=== PATIENT | male | born 1980 | race African-American/Black ===

== ENCOUNTER 2020-11-11 15:32 | Emergency (ER) | payer OTHER ==
[~2020-11-11] VITALS: Ht 162.6 cm; Wt 68.1 kg
[~2020-11-11 15:32] MED LIST: NAPR-683 PO; ZONI100C26 PO
--- NOTE | 2020-11-11 16:17 | PHYS DOC ---
Past Medical History Past Medical History: Seizure, Other Additional Past Medical Histor: AUTISTIC Past Surgical History: No Surgical History Smoking Status: Never Smoker Alcohol Use: None Drug Use: None General Adult EDM: Chief Complaint: ABDOMINAL PAIN HPI: HPI: Patient is a 40 year old male who presented to ER for evaluation of abdominal cramping. Denies any nausea vomiting, no fever. Patient said he is con stipated, do not remember where was the last time he had a bowel movement. Review of Systems: Review of Systems: Constitutional: Denies fever or chills. [] Eyes: Denies change in visual acuity. [] HENT: Denies nasal congestion or sore throat. [] Respiratory: Denies cough or shortness of breath. [] Cardiovascular: Denies chest pain or edema. [] GI: Positive for abdominal pain with constipation, no diarrhea, no nausea vomiting. : Denies dysuria. [] Musculoskeletal: Denies back pain or joint pain. [] Integument: Denies rash. [] Neurologic: Denies headache, focal weakness or sensory changes. [] Endocrine: Denies polyuria or polydipsia. [] Lymphatic: Denies swollen glands. [] Psychiatric: Denies depression or anxiety. [] Heart Score: C/O Chest Pain: N/A Risk Factors: Risk Factors: DM, Current or recent (<one month) smoker, HTN, HLP, family history of CAD, obesity. Risk Scores: Score 0 - 3: 2.5% MACE over next 6 weeks - Discharge Home Score 4 - 6: 20.3% MACE over next 6 weeks - Admit for Clinical Observation Score 7 - 10: 72.7% MACE over next 6 weeks - Early Invasive Strategies Allergies: Allergies: Allergies Coded Allergies Type Severity Reaction Last Updated Verified No Known Drug Allergies 05/08/13 No Physical Exam: PE: Constitutional: Well developed, well nourished, no acute distress, non-toxic appearance. [] HENT: Normocephalic, atraumatic, bilateral external ears normal, oropharynx moist, no oral exudates, nose normal. [] Eyes: PERRLA, EOMI, conjunctiva normal, no discharge. [] Neck: Normal range of motion, no tenderness, supple, no stridor. [] Cardiovascular:Heart rate regular rhythm, no murmur [] Lungs & Thorax: Bilateral breath sounds clear to auscultation [] Abdomen: Bowel sounds normal, soft, no tenderness, no masses, no pulsatile ma sses. [] Skin: Warm, dry, no erythema, no rash. [] Back: No tenderness, no CVA tenderness. [] Extremities: No tenderness, no cyanosis, no clubbing, ROM intact, no edema. [] Neurologic: Alert and oriented X 3, normal motor function, normal sensory function, no focal deficits noted. [] Psychologic: Affect normal, judgement normal, mood normal. [] EKG: EKG: [] Radiology/Procedures: Radiology/Procedures: [][facility] [address] [place], [place] [id number] IMAGING REPORT Signed PATIENT: GIANLUCA DOTSON ACCOUNT: [id number] : 1980 LOCATION: ER AGE: 40 SEX: M EXAM STATUS: REG ER ORD. PHYSICIAN: DUC KOO DO REASON: abdominal pain , constipation PROCEDURE: ACUTE ABDOMEN SERIES Exam: Acute abdominal series INDICATION: Abdominal pain, constipation TECHNIQUE: Frontal view of the chest with upright and supine views of the abdom en Comparisons: None FINDINGS: The cardiomediastinal silhouette and pulmonary vessels are within normal limits. The lung and pleural spaces are clear. Large amount stool noted in the transverse and descending colon. Air and stool noted throughout the left level the rectum in a nonobstructive bowel gas pattern. No suspicious masses or calcifications. Visualized osseous structures are unremarkable IMPRESSION: 1. No acute cardiopulmonary process. 2. Nonobstructive bowel gas pattern. Large amount stool in the colon. Electronically signed by: Angella Wasserman MD (11/11/2020 5:32 PM) [facility] DICTATED and SIGNED BY: ANGELLA WASSERMAN MD DATE: 11/11/20 [id number] 0 Course & Med Decision Making: Course & Med Decision Making Pertinent Labs and Imaging studies reviewed. (See chart for details) Patient is a 40-year-old male who presented to ER due to constipation. X-ray of his abdomen pelvis showed large amount of stool in the colon, no evidence of obstruction. Patient had no nausea vomiting in the ER. Patient was given a bottle of magnesium citrate to take. Patient will be discharged with prescription of Dulcolax suppository to take as needed for constipation. No further work-up needed at this time. Flor Disclaimer: Flor Disclaimer: This electronic medical record was generated, in whole or in part, using a voice recognition dictation system. Departure Departure Impression: Primary Impression: Constipation Disposition: HOME / SELF CARE / HOMELESS Condition: STABLE Referrals: LITTLE POLANCO MD (PCP) Patient Instructions: Constipation, Adult Additional Instructions: Thank you for visiting our Emergency Department. We appreciate you trusting us with your care. If any additional problems come up don't hesitate to return to visit us. Please follow up with your primary care provider so they can plan additional care if needed and know about the problem that you had. If symptoms worsen come back to the Emergency Department. Any concerning symptoms that start such as chest pain, shortness of air, weakness or numbness on one side of the body, running high fevers or any other concerning symptoms return to the ER. Scripts Bisacodyl (DULCOLAX) 10 Mg Supp.rect 1 SUPP RC DAILY for constipation for 10 Days, #10 SUPP 0 Refills Prov: DUC KOO DO 11/11/20 DUC KOO DO Nov 11, 2020 16:17
[2020-11-11 17:11] VITALS: BP 117/73
--- NOTE | 2020-11-11 17:34 | RAD ---
Exam: Acute abdominal series INDICATION: Abdominal pain, constipation TECHNIQUE: Frontal view of the chest with upright and supine views of the abdomen Comparisons: None FINDINGS: The cardiomediastinal silhouette and pulmonary vessels are within normal limits. The lung and pleural spaces are clear. Large amount stool noted in the transverse and descending colon. Air and stool noted throughout the l eft level the rectum in a nonobstructive bowel gas pattern. No suspicious masses or calcifications. Visualized osseous structures are unremarkable IMPRESSION: 1. No acute cardiopulmonary process. 2. Nonobstructive bowel gas pattern. Large amount stool in the colon. Electronically signed by: Angella Douglass MD (11/11/2020 5:32 PM) [facility]
[2020-11-11] MEDS ORDERED: MAGNESIUM CITRATE 296 ML SOLUTION. PO ONE (17:45)
[2020-11-11] MEDS ORDERED: BISA10SU55 RC (17:48)
== END 2020-11-11 18:03 | disposition home or self-care (01) ==
LOC: ER 15:32
DX: R10.13 Epigastric pain (principal); R11.10 Vomiting, unspecified
CPT/HCPCS: 74022; 99283